=== PATIENT | female | born 1985 | race Caucasian/White ===

== ENCOUNTER 2016-05-05 10:26 | Emergency (ER) | payer MEDICAID ==
[~2016-05-05] VITALS: Ht 170.2 cm; Wt 65.8 kg
[2016-05-05 10:30] VITALS: BP 102/71
[2016-05-05] MEDS ORDERED: NORG1TAB10 PO (10:44)
== END 2016-05-05 11:18 | disposition home or self-care (01) ==
LOC: ER 10:27
DX: T78.40XA Allergy, unspecified, initial encounter (principal)
CPT/HCPCS: 99283; A4606; Z7610

== ENCOUNTER 2017-01-19 08:21 | Emergency (ER) | payer MEDICAID, OTHER ==
[~2017-01-19] VITALS: Ht 170.2 cm; Wt 68.0 kg
[~2017-01-19 08:21] MED LIST: NORG1TAB10 PO
[2017-01-19 08:25] VITALS: BP 138/84
--- NOTE | 2017-01-19 09:08 | NUR ---
XRAY AT BS, WAIVER FOR TEST SIGNED
== END 2017-01-19 10:07 | disposition home or self-care (01) ==
LOC: ER 08:28
DX: M25.532 Pain in left wrist (principal); R21 Rash and other nonspecific skin eruption; R10.2 Pelvic and perineal pain
CPT/HCPCS: 73110; A4606; Z7610

== ENCOUNTER 2020-01-15 17:09 | Emergency (ER) | payer OTHER ==
[~2020-01-15] VITALS: Ht 170.2 cm; Wt 68.0 kg
--- NOTE | 2020-01-15 17:30 | NUR ---
BIBS FROM HOME TO ER BED 6. AAOX4. NOT IN RESP DISTRESS. AMBULATORY. CAME IN FOR R LOWER ABDOMINAL PAIN. PER PT, PAIN STARTED WHEN SHE FINISHED HER PERIOD ABOUT 10-13 DAYS AGO. EVER SINCE SHE HAS BEEN EXPERIENCING A DULL-SHARP PAIN AND RATES IT AT 6/10. DENIES NAUSEA AND VOMMITING. AWAITING MD FOR EVAL.
--- NOTE | 2020-01-15 17:33 | NUR ---
URINE HAS BEEN COLLECTED AND SENT TO LAB
[2020-01-15 17:58] LABS: BASOPHILS % (AUTO) 0.7 % (0.0-2.0); EOSINOPHILS % (AUTO) 0.8 % (0.0-6.0); HEMATOCRIT 44 % (33-45); HEMOGLOBIN 14.6 g/dL (11.5-14.8); LYMPHOCYTES # (AUTO) 1.6 /CMM (0.8-4.8); LYMPHOCYTES % (AUTO) 28.9 % (20.0-44.0); MEAN CORPUSCULAR HGB CONC 33 g/dl (31.0-36.0); MEAN CORPUSCULAR VOLUME 90 fL (82-100); MONOCYTES # (AUTO) 0.4 /CMM (0.1-1.30); MONOCYTES % (AUTO) 8.1 % (2.0-12.0); NEUTROPHILS # (AUTO) 3.3 /CMM (1.8-8.9); NEUTROPHILS % (AUTO) 61.5 % (43.0-81.0); PLATELET COUNT (AUTO) 222 /CMM (150-450); RED BLOOD CELL COUNT(AUTO) 4.87 MIL/uL (4.0-5.2); WHITE BLOOD COUNT (AUTO) 5.4 K/uL (4.3-11.0)
[2020-01-15 18:00] LABS: APPEARANCE,URINE Clear (CLEAR); BILIRUBIN,URINE Negative (NEGATIVE); BLOOD, URINE Negative Ery/uL (NEGATIVE); COLOR,URINE Yellow (YELLOW); LEUKOCYTE ESTERASE ,URINE Negative (NEGATIVE); NITRITE, URINE Negative (NEGATIVE); PH,URINE 6.5 (5.0-8.0); PROTEIN,URINE Negative (NEGATIVE); UGLUCOSE Negative (NEGATIVE); UROBILINOGEN,URINE 0.2 EU/dL (0.2)
[2020-01-15 18:12] LABS: BILIRUBIN,DIRECT 0.1 mg/dL (0.0-0.2); BILIRUBIN,TOTAL 0.5 mg/dL (0.2-1.0); CALCIUM, SERUM 8.8 mg/dL (8.5-10.1); CREATININE 0.6 mg/dL (0.6-1.3); TOTAL PROTEIN, SERUM 7.2 g/dL (6.4-8.2)
--- NOTE | 2020-01-15 18:57 | NUR ---
Patient discharged to home in stable condition. Written and verbal after care instructions given. Patient verbalizes understanding of instruction. Pt ambulatory with a steady gait
[2020-01-15 19:01] VITALS: BP 112/68
== END 2020-01-15 19:02 | disposition home or self-care (01) ==
LOC: ER 17:18
DX: R10.31 Right lower quadrant pain (principal); Z79.899 Other long term (current) drug therapy
CPT/HCPCS: 36415; 76856-TC; 80048-TC; 80076-TC; 81000-TC; 84703-TC; 85025-TC